=== PATIENT | female | born 1990 | race Caucasian/White ===

== ENCOUNTER 2019-09-13 15:20 | Emergency (ER) | payer BC, SELFPAY ==
[2019-09-13 15:21] VITALS: BP 145/94; PULSE 125; RESP 24; TEMP 36.6; O2SAT 98; BMI 25.8
--- NOTE | 2019-09-13 15:47 | CT_ITS ---
STUDY: CT ABDOMEN AND PELVIS WITHOUT CONTRAST REASON FOR EXAM: Female, 29 years old. N/V/LT FLANK PAIN RADIATION DOSAGE (If Supplied By Facility): CTDIvol = ( 8.51 ) mGy, DLP = ( 491.43 ) mGycm TECHNIQUE: Transaxial images were obtained from the dome of the diaphragm to the symphysis pubis without oral contrast, and without intravenous contrast. Sagittal and coronal images were reconstructed. Individualized dose optimization techniques were used for this CT. COMPARISON: CT of abdomen and pelvis dated August 10, 2013 FINDINGS: The visualized lung bases are unremarkable. Normal liver. No intrahepatic biliary duct dilatation or liver mass. Normal gallbladder and extrahepatic biliary system. Normal spleen. Normal pancreas. Normal bilateral adrenal glands. Normal right kidney. Normal left kidney. No hydronephrosis or renal masses. No large stones. Normal visualized stomach. Normal small intestine. Normal colon. No bowel dilatation or obstruction. No free air or free fluid. There is non-visualization of the appendix. Normal abdominal aorta. Normal inferior vena cava. Normal retroperitoneum. Normal urinary bladder. Stable uterus and adnexal structures. Reidentification of fallopian tube occlusive devices and IUD. Normal abdominal wall. Normal osseous structures. CT/Abdomen/Pelvis without Cont IMPRESSION: 1. No bowel dilatation or obstruction. No free air or free fluid. 2. No visualized acute process. Electronically Signed: Nilo Smith MD at 18:30 EDT , Service support ,
--- NOTE | 2019-09-13 15:48 | ED.DCSUM_ITS ---
History of Present Illness Chief Complaint: Flank Pain Informant: Patient Onset: Today Current Severity: Moderate Maximum Severity: Severe Narrative: Patient present secondary left flank pain. She reports having left CVA pain for the past couple of days, 6 AM this morning pain started wrapping around the left flank. Has had nausea and vomiting secondary to pain. She denies any urinary symptoms. She reports having chills but thinks it may be secondary to vomiting. Only prior abdominal surgery is tubal ligation. She is currently on Mirena and her last menstrual cycle was 3 years ago. Past Medical History - Allergies and Home Meds Allergies/Adverse Reactions: Allergies No Known Allergies Allergy (Verified 09/13/19 15:24) Primary Care Physician: Evan Felix DO [Primary Care Provider] - Prior records reviewed: Yes Past Medical History: None Lives: With Family Smoking Status: Never smoker Review of Systems General: Denies: Chills, Fever Eyes: Denies: Visual changes - bilaterally ENT: Denies: Bilateral ear pain Cardiovascular: Denies: Chest pain Respiratory: Denies: Dyspnea, Cough Gastrointestinal: Reports: Abdominal pain, Nausea, Vomiting Genitourinary: Denies: Dysuria, Hematuria Musculoskeletal: Denies: Swelling, Extremity Pain Skin: Denies: Rash Neurological: Denies: Headache Hematologic: Denies: Easy bruising, Easy bleeding Allergy: Denies: Uticaria Physical Exam Vital Signs/Narrative: Vital Signs Temp Pulse Resp BP Pulse Ox 09/13/19 15:21 98 F 125 H 24 H 145/94 H 98 Inital Vital Signs reviewed: Yes General: Well nourished, Well developed Head: Normocephalic ENT: Moist mucous membranes Neck: Supple Cardiovascular: Tachycardia Respiratory: No distress, CTA bilaterally Abdomen: Soft, Tender - Pubic tenderness to palpation., Hypoactive bowel sounds. Negative for: Guarding, Rebound tenderness Extremities: Nontender Skin: Normal color Neurological: Alert, Oriented x3 Psychological: Normal affect Diagnostic/Tx/Re-eval Impressions Abdomen/Pelvis CT 09/13/19 15:47 IMPRESSION: 1. No bowel dilatation or obstruction. No free air or free fluid. 2. No visualized acute process. Electronically Signed: Nilo Smith MD at 18:30 EDT , Service support , Transvaginal US 09/13/19 19:50 IMPRESSION: Normal female pelvis. Electronically Signed: Nilo Smith MD at 21:26 EDT , Service support , 09/13/19 15:47 Abdomen/Pelvis without Cont [CT] Stat 09/13/19 19:50 Transvaginal Non- [US] Stat Laboratory Results 09/13/19 09/13/19 09/13/19 15:44 15:44 15:44 WBC 15.6 H RBC 5.77 H Hgb 17.3 H Hct 49.8 H MCV 86.3 MCH 30.0 MCHC 34.7 RDW Std Deviation 37.6 RDW Coeff of Kareem 12.0 Plt Count 256 MPV 9.4 Immature Gran % (Auto) 0.500 Neut % (Auto) 93.0 H Lymph % (Auto) 1.7 L [place] % (Auto) 4.4 Eos % (Auto) 0.1 Baso % (Auto) 0.3 Absolute Neuts (auto) 14.5 H Absolute Lymphs (auto) 0.26 L Nucleated RBC % 0 Differential Comment Platelet Estimate ADEQUATE RBC Morphology NORM C+C Sodium 139 Potassium 4.0 Chloride 107 Carbon Dioxide 20.0 L Anion Gap 12 BUN 16 Creatinine 0.89 Estim Creat Clear Calc 97.47 Est GFR (MDRD) Af Amer 96 Est GFR (MDRD) Non-Af 79 BUN/Creatinine Ratio 18.0 Glucose 159 H Calcium 9.5 Serum , Qual Cancelled Urine Color Urine Clarity Urine pH Ur Specific [place] Urine Protein Urine Glucose (UA) Urine Ketones Urine Occult Blood Urine Nitrite Urine Bilirubin Urine Urobilinogen Ur Leukocyte Esterase Urine RBC Urine WBC Ur Squamous Epith Cells Urine Bacteria Urine Mucus 09/13/19 09/13/19 16:30 18:36 WBC RBC Hgb Hct MCV MCH MCHC RDW Std Deviation RDW Coeff of Kareem Plt Count MPV Immature Gran % (Auto) Neut % (Auto) Lymph % (Auto) [place] % (Auto) Eos % (Auto) Baso % (Auto) Absolute Neuts (auto) Absolute Lymphs (auto) Nucleated RBC % Differential Comment Platelet Estimate RBC Morphology Sodium Potassium Chloride Carbon Dioxide Anion Gap BUN Creatinine Estim Creat Clear Calc Est GFR (MDRD) Af Amer Est GFR (MDRD) Non-Af BUN/Creatinine Ratio Glucose Calcium Serum , Qual NEGATIVE Urine Color Yellow Urine Clarity Cloudy Urine pH 6.0 Ur Specific [place] 1.020 Urine Protein 30 H Urine Glucose (UA) Normal Urine Ketones 50 H Urine Occult Blood Negative Urine Nitrite Negative Urine Bilirubin 1 H Urine Urobilinogen Normal Ur Leukocyte Esterase Negative Urine RBC 0-5 SEEN Urine WBC 0 SEEN Ur Squamous Epith Cells 0-5 SEEN Urine Bacteria 0 SEEN Urine Mucus 4+ - Medical Decision Making Patient was given morphine, Toradol, Zofran, and IV fluids. Patient received 2 additional doses of morphine for recurrent pain throughout her ED stay. Chest results are discussed with patient and family at bedside. CT scan is unremarkable. White count is mildly elevated which may be reactive from her vomiting. Ultrasound of the pelvis reveals normal left ovary with normal blood flow. I advised the patient at this time I cannot tell her what is causing her pain. She will be given pain and nausea medication for home. She is encouraged to monitor her symptoms and return for worsening symptoms or concerns. ED Disposition - Plan for ED Patient: Disposition: Home or Assisted Living Diagnosis: Flank pain Instructions: ED Flank Pain Uncertain Cause Prescriptions: Hydrocodone Bitart/Apap 5-325 [[place] 5MG-325MG] 1 tablet PO Q6H PRN PRN 3 Days #14 tablet PRN Reason: Pain Ondansetron [Zofran Odt] 4 mg PO Q8H PRN PRN #10 tablet PRN Reason: Nausea Referrals: Evan Felix DO [Primary Care Provider] - 1-2 Days if not improving
[2019-09-13] MEDS: 0.9% Normal Saline 1,000 ML 1000 ML IV (15:56)
[2019-09-13] MEDS: Ketorolac 15 MG/ML Vial IV (15:57)
[2019-09-13] MEDS: Morphine 4 MG/ML Syringe IV ×3 (15:58→21:40)
[2019-09-13] MEDS: Ondansetron 4 MG/2 ML Vial IV (15:58)
[2019-09-13 16:00] LABS: Absolute Lymphocyte Count 0.26 X10^3/uL (0.83-4.51); Absolute Neutrophil Count 14.5 X10^3/uL (2.0-7.7); Basophil# 0.04 X10^3/uL; Basophil% 0.3 % (0-1); Eosinophil# 0.01 X10^3/uL; Eosinophils% 0.1 % (0-5); Hematocrit 49.8 % (37-47); Hemoglobin 17.3 g/dL (12.0-15.0); Lymphocyte # 0.26 X10^3/ul (4.0); Lymphocyte % 1.7 % (19-41); Mean Corp Hgb Conc 34.7 g/dL (32-36); Mean Corpuscular Volume 86.3 fL (81-99); Mean Platelet Vol. 9.4 fl (6.2-12.0); Monocyte# 0.68 X10^3/uL; Monocyte% 4.4 % (0-10); NRBC Flagged by Analyzer 0 % (0-5); Neutrophil # 14.53 X10^3/uL (2.7-7.7); POSITIVE DIFFERENTIAL YES; Platelet Count 256 K/mm3 (150-450); RBC Distribution Width SD 37.6 fl (35.1-43.9); Red Blood Count 5.77 M/mm3 (4.2-5.4); White Blood Count 15.6 K/mm3 (4.4-11.0)
[2019-09-13 16:12] LABS: Anion Gap 12 (5-15); BUN 16 mg/dL (7-18); Calcium,Total 9.5 mg/dL (8.5-10.1); Chloride 107 mmol/L (98-107); Creatinine, Serum 0.89 mg/dL (0.55-1.02); EST Glomerular Filtration Rate 79 mL/min (>60); Est Glom Filt Rate - Afr Amer 96 mL/min (>60); Estimated Creatinine Clearance 97.47 ml/min; Glucose 159 mg/dL (74-106); Sodium Level 139 mmol/L (136-145)
[2019-09-13 16:15] LABS: Differential Indicated SCAN CRITERIA MET
[2019-09-13 16:52] VITALS: BP 122/65; PULSE 101; RESP 17; TEMP 36.6; O2SAT 99
[2019-09-13 17:01] LABS: Platelet Estimate ADEQUATE (ADEQ); Red Cell Morphology NORM C+C NORMAL (NORM C&C)
[2019-09-13 17:35] LABS: Internal QC Validated? YES +Cl - CLEAR BKGD; Pregnancy, Serum, hCG Quali. NEGATIVE Negative
[2019-09-13 18:44] LABS: Bacteria 0 SEEN /hpf (None Seen); White Blood Cells 0 SEEN /hpf (0-5)
[2019-09-13 18:52] LABS: Color, Urine Yellow (Yellow); Glucose, Dipstick Normal (Normal); Ketone-Dipstick 50 mg/dl (Negative); Leukocyte Esterase-Dipstick Negative /ul (Negative); Nitrite-Dipstick Negative (Negative); Occult Blood-Urine Negative /ul (Negative); Protein-Dipstick 30 mg/dl (Negative); Urine Clarity Cloudy (Clear); Urine Urobilinogen Normal (Normal)
[2019-09-13 18:56] VITALS: BP 105/59; PULSE 90; RESP 17; TEMP 36.7; O2SAT 98
[2019-09-13 18:56] LABS: Urine Bilirubin Dipstick 1 mg/dL (Negative)
[2019-09-13 19:21] LABS: Mucous, Urine 4+ /hpf (<or=2+)
[2019-09-13 19:23] LABS: Squamous Epithelial Cells - UA 0-5 SEEN /hpf (5-10)
[2019-09-13 19:25] LABS: Red Blood Cells-Urine 0-5 SEEN /hpf (0-5)
[2019-09-13 19:43] VITALS: BP 108/66; PULSE 89; RESP 16; O2SAT 99
--- NOTE | 2019-09-13 19:50 | US_ITS ---
PROCEDURE: ULTRASOUND OF THE FEMALE PELVIS - COMPLETE REASON FOR EXAM: Female, 29 years old. Left lower quadrant pain TECHNIQUE: Transabdominal and Transvaginal TECHNICAL QUALITY: Adequate. COMPARISON: CT of abdomen and pelvis dated September 13, 2019 FINDINGS: The uterus is anteflexed and is in a midline position. The uterus measures 5.8 x 4.5 x 3.0 cm. There is no demonstrated myometrial mass. Reidentification of IUD in the fundal and central portion of the endometrial cavity. The endometrium measures 4.9 mm in thickness, and is hyperechoic. There is no demonstrated endometrial mass. Normal uterine cervix. The right ovary is visualized. The right ovary measures 1.9 x 1.4 cm. There is no right ovarian cyst or ovarian mass. There is no visualized right adnexal mass or complex lesion. The left ovary is visualized. The left ovary measures 3.2 x 2.7 cm. There is no left ovarian cyst or ovarian mass. There is no visualized left adnexal mass or complex lesion. Normal color vascular flow and Doppler signal is demonstrated in both ovaries. There is no fluid in the cul-de-sac. US/Transvaginal Non- IMPRESSION: Normal female pelvis. Electronically Signed: Nilo Smith MD at 21:26 EDT , Service support ,
[2019-09-13 21:52] VITALS: BP 122/80; PULSE 80; RESP 16; O2SAT 99
== END 2019-09-13 21:52 | disposition home or self-care (01) ==
PROVIDERS: Emergency Provider Emergency Medicine; PCP Student in an Organized Health Care Education/Training Program
DX: R10.9 Unspecified abdominal pain (principal); R11.2 Nausea with vomiting, unspecified
CPT/HCPCS: 74176; 76830; 80048; 81001; 84703; 85025; 96361; 96374; 96375; 96376; 99283; J7030; A4216; J2405

== ENCOUNTER 2019-09-14 04:00 | Inpatient (IN) | payer BC, SELFPAY ==
[2019-09-13 15:21] VITALS: BMI 25.8
[2019-09-14] VITALS (7 sets, daily range): BP systolic 100–122; BP diastolic 57–76; PULSE 68–100; RESP 16–18; TEMP 36.6–36.7; O2SAT 96–100; BMI 27.1; BMI 26.9; BMI 27.0
--- NOTE | 2019-09-14 04:33 | CT_ITS ---
STUDY: CT ABDOMEN AND PELVIS WITH CONTRAST REASON FOR EXAM: Female, 29 years old. RT SIDED ABDOMEN PAIN,ELEVATED LIPASE THIS AM,PT SEEN LAST NIGHT FOR LT SIDED ABDOMEN PAIN RADIATION DOSAGE (If Supplied By Facility): CTDIvol = ( 15.88 ) mGy, DLP = ( 822.78 ) mGycm TECHNIQUE: Transaxial images were obtained from the dome of the diaphragm to the symphysis pubis without oral contrast. Oral and amp; IV Gastrografin and amp; 100mL Isovue-300 was administered. Sagittal and coronal images were reconstructed. Individualized dose optimization techniques were used for this CT. COMPARISON: None. FINDINGS: The visualized lung bases are unremarkable. The visualized portions of the heart are within normal limits. Normal liver. Normal gallbladder and extrahepatic biliary system. Normal spleen. Normal pancreas. Normal bilateral adrenal glands. Normal right kidney. Normal left kidney. Normal visualized stomach. Normal small intestine. Normal colon. The appendix is visualized and appears normal. Normal abdominal aorta. Normal inferior vena cava. Normal retroperitoneum. Normal urinary bladder. Normal visualized uterus and ovaries. An IUD in good position. Normal abdominal wall. Normal osseous structures. CT/Abdomen/Pelvis WITH Contrast IMPRESSION: Normal enhanced CT of the abdomen and pelvis. Electronically Signed: Arti Mar, at 6:19 EDT Tel , Service support ,
[2019-09-14 04:40] LABS: Absolute Lymphocyte Count 0.57 X10^3/uL (0.83-4.51); Basophil# 0.03 X10^3/uL; Basophil% 0.3 % (0-1); Eosinophil# 0.07 X10^3/uL; Eosinophils% 0.8 % (0-5); Hematocrit 44.9 % (37-47); Hemoglobin 15.6 g/dL (12.0-15.0); Lymphocyte # 0.57 X10^3/ul (4.0); Lymphocyte % 6.3 % (19-41); Mean Corp Hgb Conc 34.7 g/dL (32-36); Mean Corpuscular Volume 86.3 fL (81-99); Mean Platelet Vol. 9.6 fl (6.2-12.0); Monocyte# 0.42 X10^3/uL; Monocyte% 4.6 % (0-10); NRBC Flagged by Analyzer 0 % (0-5); Neutrophil # 7.98 X10^3/uL (2.7-7.7); Neutrophil % 87.6 % (47-70); POSITIVE DIFFERENTIAL YES; Platelet Count 262 K/mm3 (150-450); RBC Distribution Width CV 12.1 % (11.6-14.6); RBC Distribution Width SD 38.1 fl (35.1-43.9); White Blood Count 9.1 K/mm3 (4.4-11.0)
[2019-09-14 04:41] LABS: Differential Indicated SCAN CRITERIA MET
[2019-09-14] MEDS: Ondansetron 4 MG/2 ML Vial IV (04:41)
[2019-09-14] MEDS: Morphine 4 MG/ML Syringe IV ×3 (04:41→07:43)
--- NOTE | 2019-09-14 04:43 | ED.VISSUMM ---
- ER Visit Summary Date of Service: 09/14/19 Chief Complaint: Abdominal pain History of Present Illness: The patient is a 29 F presenting with right-sided abdominal pain. Patient was seen in the ED last night for similar complaints. She states initially pain was on the left side but now pain is more on the right. While in the ED yesterday she had a CT abdomen without contrast and pelvic ultrasound which were unremarkable. She had a white count of 15.6. When she woke up at 2:30 AM she had severe pain on the right side. Physical Examination: Vitals are stable. Patient is afebrile. Alert no acute distress. HEENT exam is unremarkable. Neck is supple. Lungs are clear and equal bilaterally. Heart is regular rate and rhythm. Abdomen is soft right upper and right lower quadrant tenderness Extremities are unremarkable. Skin is warm and dry. No focal neurologic deficit. Remainder of exam is unremarkable. Emergency Department Course and Treatment: Patient was given morphine, Zofran IV. CBC shows white count of 9.1. Chemistries show glucose 119, BUN 23. Liver enzymes are normal. Lipase 9173. Patient denies alcohol use. CT abdomen pelvis with contrast normal enhanced CT of abdomen and pelvis. Patient was given additional dose of morphine. Will discuss with hospitalist for admission. Disposition: Admission Impression: Pancreatitis This note was generated with [employer] dictation software. It may contain incorrect words, spelling, and punctuation that were not noted in review of the chart prior to signing ED Disposition - Plan for ED Patient: Referrals: Evan Felix DO [Primary Care Provider] -
[2019-09-14 04:56] LABS: AST(SGOT) 18 U/L (15-37); Alanine Aminotransfer ALT/SGPT 28 U/L (13-56); Albumin, Serum 3.7 g/dL (3.2-5.0); Alkaline Phosphatase 51 U/L (45-117); Anion Gap 10 (5-15); BUN 23 mg/dL (7-18); BUN/Creat Ratio 24.9 RATIO (10-20); Calcium,Total 8.6 mg/dL (8.5-10.1); Chloride 107 mmol/L (98-107); Creatinine, Serum 0.92 mg/dL (0.55-1.02); EST Glomerular Filtration Rate 76 mL/min (>60); Est Glom Filt Rate - Afr Amer 92 mL/min (>60); Estimated Creatinine Clearance 94.29 ml/min; Globulin 3.6 g/dL (2.2-4.2); Glucose 119 mg/dL (74-106); Lipase 9173 U/L (73-393); Potassium 3.7 mmol/L (3.5-5.1); Protein, Total 7.3 g/dL (6.4-8.2); Sodium Level 137 mmol/L (136-145)
[2019-09-14 05:05] LABS: Differential Comment SCANNED
--- NOTE | 2019-09-14 07:35 | NURSING ---
305 PANCREATITIS ASHELFAH
[2019-09-14 08:59] LABS: Cholesterol 112 mg/dL (200); High Density Lipoprotein 60 mg/dL; Thyroid Stim Hormone (TSH) 0.47 uIU/mL (0.358-3.74); Triglycerides 47 mg/dL; Very Low Density Lipoprotein 9 mg/dL (5-40)
[2019-09-14] MEDS: HYDROmorphone 1 MG/ML Syringe IV ×5 (09:04→22:06)
[2019-09-14] MEDS: Lactated Ringers 1,000 ML 150 ML IV ×2 (09:06→16:22)
[2019-09-14] MEDS: 0.9% Saline Lock 10 ML Syringe IV ×4 (09:07→22:06)
--- NOTE | 2019-09-14 09:19 | HP.PCM_ITS ---
Problem List (1) Acute pancreatitis Status: Acute (2) Acne Status: Chronic History of Present Illness Date of Admission: 09/14/19 Chief Complaint: Abdominal pain. The patient is a 29 year old F with no significant past medical history presented to the emergency room because of abdominal pain. Redness started 2 days ago with abdominal pain, right-sided, sharp pain, 9 out of 10 in severity, extends to the epigastric region, associated with nausea and vomiting and without aggravating or relieving factors. She came to the emergency department yesterday for the same complaint, had CT scan done and blood work that revealed mild leukocytosis, otherwise was unremarkable. She was discharged home on [place] and Zofran. ER early this morning around 2 AM, she woke up from sleep with pain again and she decided to come to the emergency department. In the emergency department, her vital signs are stable. Her routine blood work was unremarkable. LFT was normal. Serum lipase was 9173. Serum test was done yesterday and was negative. CT scan abdomen and pelvis done today with contrast and showed no evidence of acute intra-abdominal pathology, revealed normal gallbladder and extrahepatic bile system, normal pancreas and normal kidneys. She is being admitted for acute pancreatitis for treatment. 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 Denies: Chills, Fever, Weakness Eyes: Denies: Blurred vision, Double vision, Drainage, Redness HEENT: Denies: Difficulty Hearing, Ear Pain, Eye Pain, Nasal Congestion, Sore Throat Cardiovascular: Denies: Chest Pain, Chest Pressure, Heaviness, Light Headedness, Palpitations, Syncope Respiratory: Denies: Cough, Pleuritic Pain, Shortness of Breath, Sputum production, Wheezing Gastrointestinal: Reports: Abdominal Pain, Nausea, Vomiting. Denies: Constipation, Diarrhea, Hematochezia, Melena Genitourinary: Denies: Dysuria, Frequency, Hematuria Musculoskeletal: Denies: Arm Pain, Back Pain, Foot Pain Skin: Denies: Dryness, Rash Neurological: Denies: Balance problems, Blurred vision, Change in Speech, Slurred speech, Confusion, Incoordination, Numbness, Tingling Psychiatric: Denies: Anxiety, Depression Endocrine: Denies: Change in Body Habitus, Polydipsia, Polyuria VTE Information - Inpt Only VTE Present on Admission: No VTE Mechan Device Prophylaxis: None VTE Pharm Prophylaxis ordered?: Yes Patient Problems: Active and Suspected Problems Acute pancreatitis (Acute) - Physical Exam Vitals/I&O's: Vital Signs Temp Pulse Resp BP Pulse Ox 97.8 F 76 18 102/62 98 09/14/19 08:13 09/14/19 08:13 09/14/19 08:13 09/14/19 08:13 09/14/19 08:13 Oxygen Delivery Method Room Air Weight: 182 lb 12.8 oz Body Mass Index (BMI) 26.9 Intake and Output for Last 24 Hours 09/12/19 09/13/19 09/14/19 23:59 23:59 23:59 Intake Total 500 / 500 Balance 500 / 500 General: Alert, Oriented x3, Cooperative, - - She is distressed because of pain. HEENT: Atraumatic, PERRLA, EOMI, Normocephalic Oral: Moist Mucosa, No Gingival or Mucosal Lesions/ Ulcerations Neck: Supple, No JVD, Negative Carotid Bruits, Trachea Midline, Thyroid Normal Size and Texture Lungs: Clear to auscultation, Normal air movement, No rhonchi, No wheeze, No rales Cardiovascular: Regular rate, Regular Rhythm, Normal S1, Normal S2, PMI Normal Abdomen: Bowel Sounds Present, Soft, No Hepato-splenomegaly, Tender - Epigastric and right-sided tenderness, no guarding or rigidity. Negative [place] sign. Extremities: No clubbing, No cyanosis, No edema Skin: No rashes, No breakdown Lymphatic: No Cervical, Supraclavicular, or Inguinal Adenopathy Neurological: Cranial nerves II-XII grossly intact, Motor Exam 5/5 strength throughout Psych/Mental Status: Normal Affect, Appropriate, Alert and oriented to time, place, person, mood and affect Laboratory Results 09/14/19 04:04: WBC 9.1, RBC 5.20, Hgb 15.6 H, Hct 44.9, MCV 86.3, MCH 30.0, MCHC 34.7, RDW Std Deviation 38.1, RDW Coeff of Kareem 12.1, Plt Count 262, MPV 9.6, Immature Gran % (Auto) 0.400, Neut % (Auto) 87.6 H, Lymph % (Auto) 6.3 L, [place] % (Auto) 4.6, Eos % (Auto) 0.8, Baso % (Auto) 0.3, Absolute Neuts (auto) 8.0 H, Absolute Lymphs (auto) 0.57 L, Nucleated RBC % 0, Differential Comment SCANNED 09/14/19 04:04: Sodium 137, Potassium 3.7, Chloride 107, Carbon Dioxide 20.0 L, Anion Gap 10, BUN 23 H, Creatinine 0.92, Estim Creat Clear Calc 94.29, Est GFR (MDRD) Af Amer 92, Est GFR (MDRD) Non-Af 76, BUN/Creatinine Ratio 24.9 H, Glucose 119 H, Calcium 8.6, Total Bilirubin 1.00, AST 18, ALT 28, Alkaline Phosphatase 51, Total Protein 7.3, Albumin 3.7, Globulin 3.6, Albumin/Globulin Ratio 1.0, Lipase 9173 H 09/14/19 04:04: Triglycerides 47, Cholesterol 112, LDL Cholesterol 43, VLDL Cholesterol 9, HDL Cholesterol 60, TSH 0.47 Current Medications Acetaminophen (Tylenol) 650 mg PO Q6H PRN PRN PRN Reason: Pain Score 1-10/Temp > 100.7 F Enoxaparin Sodium (Lovenox) 40 mg SC DAILY KORIN Hydromorphone HCl (Dilaudid Inj) 1 mg IV Q2H PRN PRN PRN Reason: Pain Score 4-5/10 Sodium Chloride () 250 mls @ 15 mls/hr IV .[id number] PRN PRN Reason: Saline Flush Sodium Chloride () 250 mls @ 15 mls/hr IV .[id number] PRN PRN Reason: Additional IVPB Infusion Lactated Ringer's () 1,000 mls @ 150 mls/hr IV .[id number] KORIN Last Admin: 09/14/19 09:06 Dose: 150 mls/hr Documented by: Pantoprazole Sodium 40 mg/ (Sodium Chloride) 110 mls @ 330 mls/hr IV Q12 KORIN Ondansetron HCl (Zofran) 4 mg IV Q8H PRN PRN PRN Reason: NAUSEA/VOMITING Sodium Chloride () 10 - 40 ml IV UD PRN PRN Reason: SALINE FLUSH Last Admin: 09/14/19 09:07 Dose: 10 ml Documented by: Zolpidem Tartrate (Ambien (Generic)) 5 mg PO QHS PRN PRN PRN Reason: INSOMNIA Assessment/Plan All Active Problems Acute pancreatitis (Acute) This is a 29 years old female patient presented to the emergency room because of abdominal pain, found to have elevated lipase consistent with acute pancreatitis without evidence of acute pancreatitis on the CT scan abdomen with contrast and she is being admitted for treatment. #1 acute pancreatitis: Without obvious etiology. Patient denied drinking alcohol. She is on phentermine and Aldactone and both do not cause pancreatitis. CT scan abdomen and pelvis revealed normal gallbladder and normal extrahepatic very system. LFT was unremarkable. Serum was negative. Urinalysis from yesterday reviewed and revealed no evidence of acute cystitis. TSH and lipid profile including serum triglyceride were normal. Plan: Admit to [facility] floor, keep on n.p.o., IV fluids, IV Dilaudid PRN for pain, IV Zofran PRN, IV Protonix twice daily, repeat CBC, CMP and lipase tomorrow morning. #2 acne: Hold Spironolactone for now. #3 DVT prophylaxis: Subcu Lovenox. This note was generated with [employer] dictation software. It may contain incorrect words, spelling, and punctuation that were not noted in checking the note before signing. Inpatient E&M: 32806 Init Hosp L3
--- NOTE | 2019-09-14 11:05 | CASEMGMT ---
RN ASAD Face to Face with patient for initial transition planning/care coordination assessment. RN CM introduced self and role at [facility]. Patient lying in bed, alert and oriented. Patient willing to participate in assessment and is able to answer all questions appropriately. Care providers, pharmacy, and demographics verified. Patient wishes to discharge home, denies need for home health at this time. Patient states she has no further needs or concerns at this time. CM to follow for discharge planning needs that may arise. PCP: Isidro Specialists: None Preferred Pharmacy: [facility] Insurance: [employer] Prescription Benefit: yes Living Will/HPOA: none LNOK: parents Living Arrangements: Patient lives alone in 2 story home and is independent at home. Transportation: self/parents DME/HHC: Patient denies need for DME Disposition Plan: Patient to discharge home with family support and follow-up plans in place. Robyn SANDHU, RN, CM
[2019-09-14] MEDS: Enoxaparin 40 MG/0.4 ML Syringe SC (11:59)
[2019-09-15] MEDS: Lactated Ringers 1,000 ML 150 ML IV ×3 (00:26→13:45)
[2019-09-15] MEDS: HYDROmorphone 1 MG/ML Syringe IV ×6 (01:56→23:26)
[2019-09-15 02:13] VITALS: BP 100/61; PULSE 78; RESP 17; TEMP 36.9; O2SAT 98
[2019-09-15 05:41] LABS: Absolute Lymphocyte Count 1.15 X10^3/uL (0.83-4.51); Absolute Neutrophil Count 3.3 X10^3/uL (2.0-7.7); Basophil# 0.01 X10^3/uL; Basophil% 0.2 % (0-1); Eosinophil# 0.05 X10^3/uL; Hematocrit 35.9 % (37-47); Hemoglobin 12.3 g/dL (12.0-15.0); Lymphocyte # 1.15 X10^3/ul (4.0); Lymphocyte % 22.5 % (19-41); Mean Corp Hgb Conc 34.3 g/dL (32-36); Mean Corpuscular Hgb 30.2 pg (27.0-32.0); Mean Corpuscular Volume 88.2 fL (81-99); Mean Platelet Vol. 9.5 fl (6.2-12.0); Monocyte% 11.8 % (0-10); NRBC Flagged by Analyzer 0 % (0-5); Neutrophil # 3.28 X10^3/uL (2.7-7.7); Neutrophil % 64.3 % (47-70); Platelet Count 168 K/mm3 (150-450); RBC Distribution Width CV 12.1 % (11.6-14.6); RBC Distribution Width SD 39.1 fl (35.1-43.9); Red Blood Count 4.07 M/mm3 (4.2-5.4); White Blood Count 5.1 K/mm3 (4.4-11.0)
[2019-09-15 06:07] LABS: AST(SGOT) 10 U/L (15-37); Alanine Aminotransfer ALT/SGPT 18 U/L (13-56); Albumin, Serum 2.7 g/dL (3.2-5.0); Alkaline Phosphatase 39 U/L (45-117); Anion Gap 7 (5-15); BUN 11 mg/dL (7-18); BUN/Creat Ratio 21.2 RATIO (10-20); Chloride 106 mmol/L (98-107); Creatinine, Serum 0.52 mg/dL (0.55-1.02); EST Glomerular Filtration Rate 148 mL/min (>60); Est Glom Filt Rate - Afr Amer 179 mL/min (>60); Estimated Creatinine Clearance 166.83 ml/min; Globulin 2.7 g/dL (2.2-4.2); Glucose 82 mg/dL (74-106); Lipase 2202 U/L (73-393); Potassium 3.5 mmol/L (3.5-5.1); Protein, Total 5.4 g/dL (6.4-8.2); Sodium Level 136 mmol/L (136-145)
[2019-09-15 08:13] VITALS: BP 96/52; PULSE 68; RESP 16; TEMP 36.6; O2SAT 99
--- NOTE | 2019-09-15 08:26 | US_ITS ---
STUDY: ABDOMINAL ULTRASOUND - RIGHT UPPER QUADRANT REASON FOR VISIT: Female, 29 years old acute pancreatitis -- ruq pain x 2 days TECHNIQUE: Ultrasound evaluation of the right upper quadrant was performed with real-time and static castro-scale imaging. TECHNICAL QUALITY: Adequate. COMPARISON: None. FINDINGS: Liver: The liver measures 17.9 cm. There is normal echogenicity of the liver. The bile ducts are within normal limits. There is hepatic color flow. The direction of portal flow is hepatopetal. There is no demonstrated mass lesion. Gallbladder: Normal distended gallbladder. The gallbladder wall measures 3.0 mm. There is a negative sonographic [place]''s sign. There is no pericholecystic fluid. There are no gallstones. Common Bile Duct (C.B.D.): The common bile duct measures 5.9 mm. Pancreas: Normal size of the head, body and tail of the pancreas. There is normal echogenicity of the pancreas. There is no demonstrated pancreatic mass or cyst. Right Kidney: Normal size of the right kidney. The right kidney measures 11.4 x 5.5 x 4.8 cm. Normal renal cortex. The right cortex measures 1.4 cm. There is no demonstrated renal mass or cyst. There is no right hydronephrosis. US/Abdomen Limited IMPRESSION: Normal right upper quadrant ultrasound examination. Electronically Signed: Dwight Louis MD at 11:05 EDT , Service support ,
--- NOTE | 2019-09-15 08:28 | PN_ITS ---
Patient Problems: Active and Suspected Problems Acute pancreatitis (Acute) Subjective: Chief complaint: Follow-up after admission for acute pancreatitis. Patient seen and examined. No acute events overnight. This morning, she states that the abdominal pain is getting better. Denied any more nausea or vomiting. Denied fever or chills. Her vital signs are stable. - Physical Exam Vitals/I&O's: Vital Signs Temp Pulse Resp BP Pulse Ox 97.8 F 68 16 96/52 L 99 09/15/19 08:13 09/15/19 08:13 09/15/19 08:13 09/15/19 08:13 09/15/19 08:13 Oxygen Delivery Method Room Air Weight: 182 lb 12.811 oz Body Mass Index (BMI) 26.9 Intake and Output for Last 24 Hours 09/13/19 09/14/19 09/15/19 23:59 23:59 23:59 Intake Total 2820.0 / 2820.0 842.5 / 842.5 Balance 2820.0 / 2820.0 842.5 / 842.5 General: Alert, Oriented x3, Cooperative, No apparent distress HEENT: Atraumatic, PERRLA, EOMI, Normocephalic Oral: Moist Mucosa, No Gingival or Mucosal Lesions/ Ulcerations Neck: Supple, No JVD, Negative Carotid Bruits, Trachea Midline, Thyroid Normal Size and Texture Lungs: Clear to auscultation, Normal air movement, No rhonchi, No wheeze, No rales Cardiovascular: Regular rate, Regular Rhythm, Normal S1, Normal S2, PMI Normal Abdomen: Bowel Sounds Present, Soft, Non-Distended, No Hepato-splenomegaly, Tend er - Right upper quadrant tenderness, no guarding or rigidity. Extremities: No clubbing, No cyanosis, No edema Skin: No rashes, No breakdown Lymphatic: No Cervical, Supraclavicular, or Inguinal Adenopathy Neurological: Cranial nerves II-XII grossly intact, Neuro grossly intact Psych/Mental Status: Normal Affect, Appropriate, Alert and oriented to time, place, person, mood and affect Laboratory Results 09/14/19 04:04: Triglycerides 47, Cholesterol 112, LDL Cholesterol 43, VLDL Cholesterol 9, HDL Cholesterol 60, TSH 0.47 09/15/19 05:34: WBC 5.1, RBC 4.07 L, Hgb 12.3, Hct 35.9 L, MCV 88.2, MCH 30.2, MCHC 34.3, RDW Std Deviation 39.1, RDW Coeff of Kareem 12.1, Plt Count 168, MPV 9.5, Immature Gran % (Auto) 0.200, Neut % (Auto) 64.3, Lymph % (Auto) 22.5, [place] % (Auto) 11.8 H, Eos % (Auto) 1.0, Baso % (Auto) 0.2, Absolute Neuts (auto) 3.3, Absolute Lymphs (auto) 1.15, Nucleated RBC % 0 09/15/19 05:34: Sodium 136, Potassium 3.5, Chloride 106, Carbon Dioxide 23.0, Anion Gap 7, BUN 11, Creatinine 0.52 L, Estim Creat Clear Calc 166.83, Est GFR (MDRD) Af Amer 179, Est GFR (MDRD) Non-Af 148, BUN/Creatinine Ratio 21.2 H, Glucose 82, Calcium 8.0 L, Total Bilirubin 0.50, AST 10 L, ALT 18, Alkaline Phosphatase 39 L, Total Protein 5.4 L, Albumin 2.7 L, Globulin 2.7, Albumin/Globulin Ratio 1.0, Lipase 2202 H Current Medications Acetaminophen (Tylenol) 650 mg PO Q6H PRN PRN PRN Reason: Pain Score 1-10/Temp > 100.7 F Enoxaparin Sodium (Lovenox) 40 mg SC DAILY [facility] Last Admin: 09/14/19 11:59 Dose: 40 mg Documented by: Hydromorphone HCl (Dilaudid Inj) 1 mg IV Q2H PRN PRN PRN Reason: Pain Score 4-10/10 Last Admin: 09/15/19 06:03 Dose: 1 mg Documented by: Sodium Chloride () 250 mls @ 15 mls/hr IV .[id number] PRN PRN Reason: Saline Flush Sodium Chloride () 250 mls @ 15 mls/hr IV .[id number] PRN PRN Reason: Additional IVPB Infusion Lactated Ringer's () 1,000 mls @ 100 mls/hr IV .Q10H [facility] Last Admin: 09/15/19 06:03 Dose: 150 mls/hr Documented by: Pantoprazole Sodium 40 mg/ (Sodium Chloride) 110 mls @ 330 mls/hr IV Q12 [facility] Last Infusion: 09/14/19 22:30 Dose: Infused Documented by: Ondansetron HCl (Zofran) 4 mg IV Q8H PRN PRN PRN Reason: NAUSEA/VOMITING Sodium Chloride () 10 - 40 ml IV UD PRN PRN Reason: SALINE FLUSH Last Admin: 09/14/19 22:06 Dose: 10 ml Documented by: Zolpidem Tartrate (Ambien (Generic)) 5 mg PO QHS PRN PRN PRN Reason: INSOMNIA Medical Necessity - Tobacco Use Smoking Status: Never smoker Assessment/Plan All Active Problems Acute pancreatitis (Acute) This is a 29 years old female patient presented to the emergency room because of abdominal pain, found to have elevated lipase consistent with acute pancreatitis without evidence of acute pancreatitis on the CT scan abdomen with contrast and she is being admitted for treatment. #1 acute pancreatitis: With uncertain etiology. She is on n.p.o., IV fluids, IV Dilaudid, IV Protonix and Zofran PRN. Symptoms started to improve and her vital signs are stable, afebrile. Repeat LFT was unremarkable, lipase is coming down and it is 2202 this morning. Patient denied drinking alcohol. She is on phentermine and Aldactone and both do not cause pancreatitis. CT scan abdomen and pelvis revealed normal gallbladder and normal extrahepatic very system. LFT was unremarkable. Serum was negative. Urinalysis from the day before admission reviewed and revealed no evidence of acute cystitis. TSH and lipid profile including serum triglyceride were normal. Plan: Continue same treatment, start clear liquids, repeat lipase tomorrow morning, ultrasound gallbladder. #2 acne: Keep holding Spironolactone for now. #3 DVT prophylaxis: Subcu Lovenox. This note was generated with [employer] dictation software. It may contain incorrect words, spelling, and punctuation that were not noted in checking the note before signing. Inpatient E&M: 12065 Subs Hosp L2
[2019-09-15 09:00] VITALS: O2SAT 99
[2019-09-15 10:15] VITALS: BP 103/61
[2019-09-15] MEDS: 0.9% Saline Lock 10 ML Syringe IV (10:15)
[2019-09-15] MEDS: Enoxaparin 40 MG/0.4 ML Syringe SC (10:18)
[2019-09-15 13:42] VITALS: BP 102/59; PULSE 60; RESP 14; TEMP 36.7; O2SAT 99
[2019-09-15 20:43] VITALS: BP 106/63; PULSE 75; RESP 16; TEMP 36.8; O2SAT 97
[2019-09-15] MEDS: Lactated Ringers 1,000 ML 100 ML IV (20:44)
[2019-09-16 02:29] VITALS: BP 100/61; PULSE 73; RESP 16; TEMP 36.6; O2SAT 98
[2019-09-16] MEDS: HYDROmorphone 1 MG/ML Syringe IV ×5 (05:14→21:01)
[2019-09-16] MEDS: Lactated Ringers 1,000 ML 100 ML IV ×2 (05:15→16:59)
[2019-09-16 06:35] LABS: Lipase 561 U/L (73-393)
--- NOTE | 2019-09-16 08:17 | PN_ITS ---
Patient Problems: Active and Suspected Problems Acute pancreatitis (Acute) Subjective: Chief complaint: Follow-up after admission for acute pancreatitis. Patient seen and examined. No acute events overnight. According to the patient, she had an episode of increasing abdominal pain earlier this morning, received IV Dilaudid and it is better now. At this time, her pain is 5 out of 10 in severity. She denied any more nausea. She is tolerating clear liquids. Her vital signs are stable. - Physical Exam Vitals/I&O's: Vital Signs Temp Pulse Resp BP Pulse Ox 98 F 73 16 100/61 98 09/16/19 02:29 09/16/19 02:29 09/16/19 02:29 09/16/19 02:29 09/16/19 02:29 Oxygen Delivery Method Room Air Weight: 182 lb 12.811 oz Body Mass Index (BMI) 26.9 Intake and Output for Last 24 Hours 09/14/19 09/15/19 09/16/19 23:59 23:59 23:59 Intake Total 2820.0 / 2820.0 4032.5 / 4032.5 1033.33 / 1033.33 Output Total 100 / 100 Balance 2820.0 / 2820.0 3932.5 / 3932.5 1033.33 / 1033.33 General: Alert, Oriented x3, Cooperative, No apparent distress HEENT: Atraumatic, PERRLA, EOMI, Normocephalic Oral: Moist Mucosa, No Gingival or Mucosal Lesions/ Ulcerations Neck: Supple, No JVD, Negative Carotid Bruits, Trachea Midline, Thyroid Normal Size and Texture Lungs: Clear to auscultation, Normal air movement, No rhonchi, No wheeze, No rales Cardiovascular: Regular rate, Regular Rhythm, Normal S1, Normal S2, PMI Normal Abdomen: Bowel Sounds Present, Soft, Non-Distended, No Hepato-splenomegaly, - - Right side and epigastric abdominal tenderness. Extremities: No clubbing, No cyanosis, No edema Skin: No rashes, No breakdown Lymphatic: No Cervical, Supraclavicular, or Inguinal Adenopathy Neurological: Cranial nerves II-XII grossly intact, Neuro grossly intact Psych/Mental Status: Normal Affect, Appropriate, Alert and oriented to time, place, person, mood and affect Laboratory Results 09/16/19 06:00: Lipase 561 H Current Medications Acetaminophen (Tylenol) 650 mg PO Q6H PRN PRN PRN Reason: Pain Score 1-10/Temp > 100.7 F Enoxaparin Sodium (Lovenox) 40 mg SC DAILY [facility] Last Admin: 09/15/19 10:18 Dose: 40 mg Documented by: Hydromorphone HCl (Dilaudid Inj) 1 mg IV Q2H PRN PRN PRN Reason: Pain Score 4-10/10 Last Admin: 09/16/19 05:14 Dose: 1 mg Documented by: Sodium Chloride () 250 mls @ 15 mls/hr IV .[id number] PRN PRN Reason: Saline Flush Sodium Chloride () 250 mls @ 15 mls/hr IV .[id number] PRN PRN Reason: Additional IVPB Infusion Lactated Ringer's () 1,000 mls @ 100 mls/hr IV .Q10H [facility] Last Admin: 09/16/19 05:15 Dose: 100 mls/hr Documented by: Pantoprazole Sodium 40 mg/ (Sodium Chloride) 110 mls @ 330 mls/hr IV Q12 [facility] Last Infusion: 09/15/19 21:07 Dose: Infused Documented by: Ondansetron HCl (Zofran) 4 mg IV Q8H PRN PRN PRN Reason: NAUSEA/VOMITING Sodium Chloride () 10 - 40 ml IV UD PRN PRN Reason: SALINE FLUSH Last Admin: 09/15/19 10:15 Dose: 20 ml Documented by: Zolpidem Tartrate (Ambien (Generic)) 5 mg PO QHS PRN PRN PRN Reason: INSOMNIA Medical Necessity - Tobacco Use Smoking Status: Never smoker Assessment/Plan All Active Problems Acute pancreatitis (Acute) This is a 29 years old female patient presented to the emergency room because of abdominal pain, found to have elevated lipase consistent with acute pancreatitis without evidence of acute pancreatitis on the CT scan abdomen with contrast and she is being admitted for treatment. #1 acute pancreatitis: With uncertain etiology. She is on clear liquids, IV fluids, IV Dilaudid, IV Protonix and Zofran PRN. She is tolerating clear liquids. Abdominal pain continue to improve but she had increasing pain earlier this morning. She denied any more nausea. Ultrasound gallbladder revealed normal gallbladder, no gallstones, CBD diameter is normal. Repeat LFT was unremarkable, lipase is trending down, it is 561. Serum was negative. TSH and lipid profile including serum triglyceride were normal. Plan: Continue same treatment, anticipate discharge home tomorrow. #2 acne: Keep holding Spironolactone for now. #3 DVT prophylaxis: Subcu Lovenox. This note was generated with [employer] dictation software. It may contain incorrect words, spelling, and punctuation that were not noted in checking the note before signing. Inpatient E&M: 69938 Subs Hosp L2
[2019-09-16 09:10] VITALS: O2SAT 98
[2019-09-16 09:15] VITALS: BP 110/69; PULSE 83; RESP 16; TEMP 36.7; O2SAT 98
[2019-09-16] MEDS: Enoxaparin 40 MG/0.4 ML Syringe SC (13:11)
[2019-09-16 14:18] VITALS: BP 107/70; PULSE 63; RESP 16; TEMP 36.7; O2SAT 100
[2019-09-16 19:47] VITALS: BP 100/54; PULSE 88; RESP 16; TEMP 37; O2SAT 97
[2019-09-17] MEDS: 0.9% Saline Lock 10 ML Syringe IV ×2 (01:24→06:11)
[2019-09-17] MEDS: HYDROmorphone 1 MG/ML Syringe IV ×2 (01:24→06:10)
[2019-09-17 01:54] VITALS: BP 96/62; PULSE 65; RESP 16; TEMP 37.1; O2SAT 99
[2019-09-17] MEDS: Lactated Ringers 1,000 ML 100 ML IV (03:04)
--- NOTE | 2019-09-17 08:18 | DCINST_ITS ---
- Discharge Diagnoses Current Active Problems: Current Active and Chronic Problems Acute pancreatitis (Acute) Acne (Chronic) You will use the following diet at home:: Other - Light diet, advance as tolerated. Discharge Activity: Return to Normal Activity Return to work on:: 09/20/19 Weight Bearing Status: Full weight bearing Call your doctor if you observe: Fever of 101 or Higher, Shortness of breath, Dizziness, Fainting spells, Chest pain, Increased palpitations (irregular heartbeat), Uncontrolled pain Additional Instructions: Use [id number] Tylenol or ibuprofen for pain as needed. If did not work, you can use the [place] that was prescribed for you. Allergies/Adverse Reactions: Allergies No Known Allergies Allergy (Verified 09/14/19 04:07) Medications to take at Discharge Hydrocodone Bitart/Apap 5-325 [[place] 5/325] 1 tab PO Q6H PRN PRN 3 Days #14 tab 09/13/19 Ondansetron [Zofran Odt] 4 mg PO Q8H PRN PRN #10 tab 09/13/19 Phentermine HCl 37.5 mg PO DAILY 09/14/19 Spironolactone 25 mg PO BID 09/14/19 Primary Care Physician: Evan Felix DO [Primary Care Provider] - Please follow up with your Primary Care Physician in: 1 week. Test Results: Test results from this visit will be discussed in further detail at your follow- up appointment, if applicable.
[2019-09-17 09:35] VITALS: BP 109/60; PULSE 67; RESP 18; TEMP 37; O2SAT 98
[2019-09-17] MEDS: Acetaminophen 325 MG Tablet 650 MG PO (09:38)
--- NOTE | 2019-09-17 10:32 | PCM.DC.SUM ---
Discharge Date and Diagnosis - Problem List Patient Problems: Active and Suspected Problems Acute pancreatitis (Acute) Date of Admission: 09/14/19 Date of Discharge: 09/17/19 - Primary Discharge Diagnosis Acute Problems: Active Problems #1 acute pancreatitis of uncertain etiology. - Secondary Discharge Diagnosis Chronic Problems: Chronic Problems Acne (Chronic) Hospital Course and Treatment Imaging Results: Clinical Impression(s) from Imaging Studies Abdomen/Pelvis CT 09/14/19 04:33 IMPRESSION: Normal enhanced CT of the abdomen and pelvis. Electronically Signed: Arti Mar, at 6:19 EDT Tel , Service support , Abdomen Ultrasound 09/15/19 08:26 IMPRESSION: Normal right upper quadrant ultrasound examination. Electronically Signed: Dwight Louis MD at 11:05 EDT , Service support , Operations: None Procedures: None Summary of Care Provided: Patient seen and examined on the day of discharge and noted to be stable to be discharged home. Abdominal pain significantly improved, no more nausea and vomiting and she has been tolerating clear liquids. Her vital signs are stable. The patient is a 29 year old F presented to the emergency room because of abdominal pain and she was found to have elevated lipase consistent with acute pancreatitis. On admission, lipase was 9173. There was no obvious etiology identified for this acute pancreatitis. Patient denied drinking alcohol. Her LFT was unremarkable. Lipid profile revealed triglyceride of 47, total cholesterol of 112. TSH was normal. CT scan abdomen and pelvis revealed normal liver, normal gallbladder and extrahepatic biliary system and normal pancreas. There was no evidence of other intra-abdominal acute pathology. Patient denied using any control pills. She is on Spironolactone for acne and phentermine for weight loss and both does not cause pancreatitis. She was treated with IV fluids, IV pain medications, IV antiemetics and IV Pepcid. She did have significant right upper quadrant tenderness for which ultrasound gallbladder done and showed normal gallbladder, no gallstones, no evidence of acute cholecystitis. With above-mentioned treatment, her symptoms improved. Her lipase trended down and it came down to 561. Her vital signs been stable and she remained afebrile. Patient discharged home in a stable medical condition, instructed to use [place] PRN for pain that was given to her upon ER visit 2 days before admission, instructed to use [id number] Tylenol and ibuprofen before using [place], instructed to stick on light diet, advance as tolerated, started back on Spironolactone and phentermine, recommended follow-up with PCP in 1 week. Patient Problems: Active and Suspected Problems Acute pancreatitis (Acute) - Physical Exam Vitals/I&O's: Vital Signs Temp Pulse Resp BP Pulse Ox 98.6 F 67 18 109/60 98 09/17/19 09:35 09/17/19 09:35 09/17/19 09:35 09/17/19 09:35 09/17/19 09:35 Oxygen Delivery Method Room Air Weight: 182 lb 12.811 oz Body Mass Index (BMI) 26.9 Intake and Output for Last 24 Hours 09/15/19 09/16/19 09/17/19 23:59 23:59 23:59 Intake Total 4032.5 / 4032.5 3603.33 / 3753.33 1515 / 1515 Output Total 100 / 100 Balance 3932.5 / 3932.5 3603.33 / 3753.33 1515 / 1515 General: Alert, Oriented x3, Cooperative, No apparent distress HEENT: Atraumatic, PERRLA, EOMI, Normocephalic Oral: Moist Mucosa, No Gingival or Mucosal Lesions/ Ulcerations Neck: Supple, No JVD, Negative Carotid Bruits, Trachea Midline, Thyroid Normal Size and Texture Lungs: Clear to auscultation, Normal air movement, No rhonchi, No wheeze, No rales Cardiovascular: Regular rate, Regular Rhythm, Normal S1, Normal S2, PMI Normal Abdomen: Bowel Sounds Present, Soft, Non Tender, Non-Distended, No Hepato-splenomegaly Extremities: No clubbing, No cyanosis, No edema Skin: No rashes, No breakdown Lymphatic: No Cervical, Supraclavicular, or Inguinal Adenopathy Neurological: Cranial nerves II-XII grossly intact, Neuro grossly intact Psych/Mental Status: Normal Affect, Appropriate Current Medications Acetaminophen (Tylenol) 650 mg PO Q6H PRN PRN PRN Reason: Pain Score 1-10/Temp > 100.7 F Last Admin: 09/17/19 09:38 Dose: 650 mg Documented by: Enoxaparin Sodium (Lovenox) 40 mg SC DAILY [facility] Last Admin: 09/17/19 09:34 Dose: Not Given Documented by: Hydromorphone HCl (Dilaudid Inj) 1 mg IV Q2H PRN PRN PRN Reason: Pain Score 4-10/10 Last Admin: 09/17/19 06:10 Dose: 1 mg Documented by: Sodium Chloride () 250 mls @ 15 mls/hr IV .[id number] PRN PRN Reason: Saline Flush Sodium Chloride () 250 mls @ 15 mls/hr IV .[id number] PRN PRN Reason: Additional IVPB Infusion Lactated Ringer's () 1,000 mls @ 100 mls/hr IV .Q10H [facility] Last Infusion: 09/17/19 09:34 Dose: Infused Documented by: Pantoprazole Sodium 40 mg/ (Sodium Chloride) 110 mls @ 330 mls/hr IV Q12 [facility] Last Admin: 09/17/19 09:34 Dose: Not Given Documented by: Ondansetron HCl (Zofran) 4 mg IV Q8H PRN PRN PRN Reason: NAUSEA/VOMITING Sodium Chloride () 10 - 40 ml IV UD PRN PRN Reason: SALINE FLUSH Last Admin: 09/17/19 06:11 Dose: 10 ml Documented by: Zolpidem Tartrate (Ambien (Generic)) 5 mg PO QHS PRN PRN PRN Reason: INSOMNIA Discharge Activity: Return to Normal Activity Return to work on:: 09/20/19 Weight Bearing Status: Full weight bearing Call your doctor if you observe: Fever of 101 or Higher, Shortness of breath, Dizziness, Fainting spells, Chest pain, Increased palpitations (irregular heartbeat), Uncontrolled pain Home Medications: Medications to take at Discharge Hydrocodone Bitart/Apap 5-325 [[place] 5/325] 1 tab PO Q6H PRN PRN 3 Days #14 tab 09/13/19 Ondansetron [Zofran Odt] 4 mg PO Q8H PRN PRN #10 tab 09/13/19 Phentermine HCl 37.5 mg PO DAILY 09/14/19 Spironolactone 25 mg PO BID 09/14/19 Primary Care Physician: Evan Felix DO [Primary Care Provider] - Please follow up with your Primary Care Physician in: 1 week. Disposition: Home Minutes spent on discharge:: 28 Medical Necessity - Tobacco Use Smoking Status: Never smoker Meaningful Use Info Meaningful Use Diagnoses (Choose all that apply): None applicable Inpatient E&M: 48502 Disch Hosp
--- NOTE | 2019-09-17 11:04 | PHA.DC.MR ---
Pharmacy Service has performed discharge medication reconciliation for this patient. The patient's discharge medication list was reviewed for discrepancies and discrepancies were resolved. Home Medications Hydrocodone Bitart/Apap 5-325 [[place] 5/325] 1 tab PO Q6H PRN PRN 3 Days #14 tab 09/13/19 Ondansetron [Zofran Odt] 4 mg PO Q8H PRN PRN #10 tab 09/13/19 Phentermine HCl 37.5 mg PO DAILY 09/14/19 Spironolactone 25 mg PO BID 09/14/19
== END 2019-09-17 12:24 | disposition home or self-care (01) | DRG 440 ==
LOC: ED 04:51 → MS3 07:27
PROVIDERS: Admitting Provider Hospitalist; Emergency Provider Emergency Medicine; PCP Student in an Organized Health Care Education/Training Program; Visit Provider Hospitalist
DX: K85.90 Acute pancreatitis without necrosis or infection, unspecified (principal); L70.9 Acne, unspecified
CPT/HCPCS: 36415; 74177; 76705; 80053; 80061; 83690; 84443; 85025; 99251; 99284; J7040; J7120; Q9967; A4216; G0463; J2405